=== PATIENT | male | born 1995 | race Caucasian/White ===

== ENCOUNTER 2016-12-28 13:46 | Emergency (ER) | payer OTHER ==
[2016-12-28] MEDS ORDERED: KETOROLAC 15 MG/1 ML SDV IVP ONE (14:47)
[2016-12-28] MEDS ORDERED: NS 1,000 ML IV ONE ×2 (14:47→16:32)
[2016-12-28] MEDS ORDERED: ACETAMINOPHEN 325 MG TAB PO ONE (14:47)
[2016-12-28 15:18] LABS: % IMMATURE GRANULYOCYTES 0.3 % (0.0-1.1); ABSOLUTE IMMATURE GRANULOCYTES 0.03 10^3/uL (0.00-0.10); ADD DIFF? NO; ADD MORPH? NO; ADD SCAN? NO; ATYPICAL LYMPHOCYTE FLAG 40 (0-99); FRAGMENT RBC FLAG 0 (0-99); HEMATOCRIT 44.6 % (40.0-51.0); HEMOGLOBIN 15.7 g/dL (13.7-17.5); LEFT SHIFT FLG 0 (0-99); LIPEMIA HEMOLYSIS FLAG 90 (0-99); MEAN CELL HEMOGLOBIN 30.8 pg (27.9-34.1); MEAN CELL HEMOGLOBIN CONCENTR. 35.2 g/dL (32.4-36.7); MEAN CELL VOLUME 87.6 fL (81.5-99.8); MEAN PLATELET VOLUME 10.2 fL (8.7-11.7); PLATELET CLUMPS FLAG 0 (0-99); PLATELET COUNT 163 10^3/uL (150-400); RED BLOOD CELL COUNT 5.09 10^6/uL (4.40-6.38); RED CELL DISTRIBUTION WIDTH 12.6 % (11.5-15.2)
[2016-12-28 15:35] LABS: ANION GAP 18 mEq/L (8-16); CALCIUM 9.4 mg/dL (8.5-10.4); CARBON DIOXIDE 17 mEq/l (22-31); CHLORIDE 99 mEq/L (97-110); GLOMERULAR FILTRATION RATE > 60; GLUCOSE 83 mg/dL (70-100); POTASSIUM 4.3 mEq/L (3.5-5.2); SODIUM 134 mEq/L (134-144)
--- NOTE | 2016-12-28 15:41 | EDPHY ---
H & P Time Seen by Provider: 12/28/16 14:48 HPI/ROS: HPI: 21-year-old male presents to emergency department with chief concern headache, fever, myalgias, sore throat. Symptoms onset 3 days ago with fever, decreased appetite, severe myalgias. Developed a sore throat and swollen tonsils the following day. Developed diarrhea last night. Denies dizziness, rhinorrhea, dysphagia, cough, nausea, vomiting, rash, recent travel. No urinary symptoms. No history of STI. No unusual penile discharge. No aggravating or alleviating factors. He is a [employer] student. Immunocompetent. Denies history of asthma or pneumonia. Up-to-date with flu shot. ROS:10 point review of systems is negative other than as stated in HPI Social History: [employer] student Smoking Status: Former smoker Physical Exam: Vital signs reviewed by me General: Awake, alert, calm, cooperative. No acute distress. Head: Normalocephalic. Atraumatic. EENT: PERRLA. EOMI. No pallor or injection. Anicteric. No nystagmus. No injection. TMs intact bilaterally with normal landmarks. No rhinnorhea, nasal passages clear. Oropharynx with mild erythema, tonsils 3+ bilaterally with exudates. Neck: Supple, nontender. AC lymphadenopathy present. Full range of motion. No meningismus. Respiratory: Breathing unlabored. Breath sounds equal bilaterally and clear to auscultation. No adventitious sounds. CV: Chest nontender, atraumatic. Heart rate regular. No murmur, distal pulses 2+ bilaterally. Brisk cap refill all extremities. GI: Abdomen soft, nontender. Bowel sounds normoactive and positive x4 quadrants. : No suprapubic tenderness. No CVA or flank tenderness. Neuro: Alert. Oriented x 3. Speech clear. Nonfocal cranial nerves throughout. Sensation intact all extremities. Skin: Skin warm, dry, intact. No rashes, abrasions, or lacerations. Skin turgor normal. Extremities: Full range of motion in all 4 extremities. Strength 5+ all extremities. Constitutional: Initial Vital Signs Temperature (C) 38.7 C H 12/28/16 14:03 Heart Rate 102 H 12/28/16 14:03 Respiratory Rate 18 12/28/16 14:03 Blood Pressure 113/76 12/28/16 14:03 O2 Sat (%) 100 12/28/16 14:03 O2 Delivery Mode Room Air Allergies/Adverse Reactions: No Known Allergies Allergy (Verified 12/28/16 14:07) Home Medications: Medication Instructions Recorded Amoxicillin 500 mg PO BID 10 Days 12/28/16 Medical Decision Making - Diagnostics Imaging: Chest, Two Views at 1524 hours History: fever, malaise. Comparison: None. Findings: Cardiac silhouette is within normal range. No pneumonia, congestive heart failure, pleural effusion, or pneumothorax. Impression: No focal pneumonia. Dictated By: Abilio Alberto ED Course/Re-evaluation: 1430: 21-year-old male presents to ED with a febrile illness that onset 3 days ago including fever, decreased appetite, sore throat, swollen tonsils, headache , myalgias. Denies any cough. Rapid strep, influenza, mono, chest x-ray all pending. IV normal saline, 15 mg IV Toradol, 650 mg p. o. Tylenol given. 1800: After 2 L normal saline, 15 mg IV Toradol, 650 mg p. o. Tylenol, vitals are stable at 1 20/54, 37.3, 96% on room air, 16 respiratory rate, 94 pulse. Flu swab negative. Rapid strep negative. Hunt was negative. Chest x-ray negative for evidence of pneumonia. I will treat him for strep pharyngitis as his tonsils are 3+ bilaterally with exudates. He is an otherwise healthy 21- year-old male. He is nontoxic. I will discharge him to follow up with primary care. Differential Diagnosis: Differential diagnosis includes but is not limited to influenza, strep pharyngitis, mononucleosis, pneumonia, other viral URI, sepsis - Data Points Laboratory Results: Laboratory Results 12/28/16 15:00 12/28/16 15:00 12/28/16 12/28/16 12/28/16 Unknown 15:00 15:00 WBC RBC Hgb Hct MCV MCH MCHC RDW Plt Count MPV Neut % (Auto) Lymph % (Auto) Hunt % (Auto) Eos % (Auto) Baso % (Auto) Nucleat RBC Rel Count Absolute Neuts (auto) Absolute Lymphs (auto) Absolute Monos (auto) Absolute Eos (auto) Absolute Basos (auto) Absolute Nucleated RBC Immature Gran % Immature Gran # VBG Lactic Acid 1.2 mmol/L mmol/L (0.7-2.1) Sodium Potassium Chloride Carbon Dioxide Anion Gap BUN Creatinine Estimated GFR Glucose Calcium Monoscreen Influenza Typ A,B (DFA) NEGATIVE FOR FLU (NEGATIVE) Group A Strep Screen Group A Strep DNA NEGATIVE (NEGATIVE) 12/28/16 12/28/16 12/28/16 15:00 15:00 15:00 WBC RBC Hgb Hct MCV MCH MCHC RDW Plt Count MPV Neut % (Auto) Lymph % (Auto) Hunt % (Auto) Eos % (Auto) Baso % (Auto) Nucleat RBC Rel Count Absolute Neuts (auto) Absolute Lymphs (auto) Absolute Monos (auto) Absolute Eos (auto) Absolute Basos (auto) Absolute Nucleated RBC Immature Gran % Immature Gran # VBG Lactic Acid Sodium 134 mEq/L mEq/L (134-144) Potassium 4.3 mEq/L mEq/L (3.5-5.2) Chloride 99 mEq/L mEq/L (97-110) Carbon Dioxide 17 mEq/l L mEq/l (22-31) Anion Gap 18 mEq/L H mEq/L (8-16) BUN 11 mg/dL mg/dL (7-23) Creatinine 1.0 mg/dL mg/dL (0.7-1.3) Estimated GFR > 60 Glucose 83 mg/dL mg/dL (70-100) Calcium 9.4 mg/dL mg/dL (8.5-10.4) Monoscreen NEGATIVE (NEGATIVE) Influenza Typ A,B (DFA) Group A Strep Screen NEGATIVE (NEGATIVE) Group A Strep DNA 12/28/16 15:00 WBC 9.62 10^3/uL H 10^3/uL (3.80-9.50) RBC 5.09 10^6/uL 10^6/uL (4.40-6.38) Hgb 15.7 g/dL g/dL (13.7-17.5) Hct 44.6 % % (40.0-51.0) MCV 87.6 fL fL (81.5-99.8) MCH 30.8 pg pg (27.9-34.1) MCHC 35.2 g/dL g/dL (32.4-36.7) RDW 12.6 % % (11.5-15.2) Plt Count 163 10^3/uL 10^3/uL (150-400) MPV 10.2 fL fL (8.7-11.7) Neut % (Auto) 84.0 % H % (39.3-74.2) Lymph % (Auto) 7.6 % L % (15.0-45.0) Hunt % (Auto) 7.8 % % (4.5-13.0) Eos % (Auto) 0.0 % L % (0.6-7.6) Baso % (Auto) 0.3 % % (0.3-1.7) Nucleat RBC Rel Count 0.0 % % (0.0-0.2) Absolute Neuts (auto) 8.08 10^3/uL H 10^3/uL (1.70-6.50) Absolute Lymphs (auto) 0.73 10^3/uL L 10^3/uL (1.00-3.00) Absolute Monos (auto) 0.75 10^3/uL 10^3/uL (0.30-0.80) Absolute Eos (auto) 0.00 10^3/uL L 10^3/uL (0.03-0.40) Absolute Basos (auto) 0.03 10^3/uL 10^3/uL (0.02-0.10) Absolute Nucleated RBC 0.00 10^3/uL 10^3/uL (0-0.01) Immature Gran % 0.3 % % (0.0-1.1) Immature Gran # 0.03 10^3/uL 10^3/uL (0.00-0.10) VBG Lactic Acid Sodium Potassium Chloride Carbon Dioxide Anion Gap BUN Creatinine Estimated GFR Glucose Calcium Monoscreen Influenza Typ A,B (DFA) Group A Strep Screen Group A Strep DNA Medications Given: Discontinued Medications Acetaminophen (Tylenol) 650 mg PO EDNOW ONE Stop: 12/28/16 14:48 Last Admin: 12/28/16 15:16 Dose: 650 mg Amoxicillin (Amoxicillin) 500 mg PO EDNOW ONE PRN Reason: Protocol Stop: 12/28/16 18:22 Last Admin: 12/28/16 18:50 Dose: 500 mg Sodium Chloride (Ns) 1,000 mls @ 0 mls/hr IV ONCE ONE PRN Reason: Wide Open Stop: 12/28/16 14:48 Last Admin: 12/28/16 15:11 Dose: 1,000 mls Sodium Chloride (Ns) 1,000 mls @ 0 mls/hr IV ONCE ONE PRN Reason: Wide Open Stop: 12/28/16 16:33 Last Admin: 12/28/16 16:56 Dose: 1,000 mls Ketorolac Tromethamine (Toradol) 15 mg IVP EDNOW ONE Stop: 12/28/16 14:48 Last Admin: 12/28/16 15:17 Dose: 15 mg Departure - Departure Disposition: Home, Routine, Self-Care Clinical Impression: Pharyngitis Condition: Good Instructions: Pharyngitis (ED) Additional Instructions: Plan: Antibiotic as prescribed for 10 days twice daily with food You may use 600 mg of ibuprofen every 6 hours for fever, inflammation, or pain. Always take ibuprofen with food and stay well hydrated while taking. Do not exceed the maximum allowable dose in a 24 hour period which is 2400 mg. You may use 1000mg of Tylenol every 8 hours. This may be staggered with the ibuprofen. Do not exceed the maximum dose in a 24 hour period which is 3 GM or 3000 mg. Plenty of fluids and rest Follow up with primary care within the next 1-2 days for recheck without fail-- When you call to schedule appointment, please let the office know you are an " ER follow up" appointment" For worsening symptoms return promptly to ER for recheck Referrals: NONE *PRIMARY CARE P,. [Primary Care Provider] - As per Instructions Mara Rodriguez MD [Medical Doctor] - As per Instructions Stand Alone Forms: School Excuse Prescriptions: Amoxicillin 500 mg PO BID 10 Days
[2016-12-28 16:11] VITALS: O2SAT 96
[2016-12-28 17:54] VITALS: BP 120/54; PULSE 94; RESP 16
[2016-12-28 19:01] VITALS: TEMP 99.1
== END 2016-12-28 19:01 | disposition home or self-care (01) ==
DX: J02.9 Acute pharyngitis, unspecified (principal); Z87.891 Personal history of nicotine dependence
CPT/HCPCS: J1885